=== PATIENT | female | born 1945 | race Caucasian/White ===

== ENCOUNTER → 2016-11-02 | Outpatient (CLI) | payer OTHER ==
--- NOTE | 2016-11-02 20:08 | MA ---
Screening Digital Mammogram, With iCAD Indication: Routine screening. Technique: Standard cephalocaudal and mediolateral oblique projections were obtained. This examinat ion was processed by the iCAD computer-aided detection system. Comparison: October 2015, October 2014, October 2013, and September 2011. Breast Density: Type D. Findings: CAD was reviewed. No suspicious microcalcifications, mass, or architectural distortion. Impressions 1. Negative mammogram. 2. BI-RADS: 1 - Negative. Recommendation: Routine screening is recommended in one year, as long as physical examination is ivy ign, in this patient with extremely dense breast parenchyma. [facility] will send a result letter to the patient. Negative mammography should not preclude additional workup of a clinically suspicious finding. The patient's information is entered into a reminder system with a target due date for her next mammo gram.
== END ==
LOC: CIMAGING 10:18
DX: Z12.31 Encounter for screening mammogram for malignant neoplasm of breast (principal)
CPT/HCPCS: G0202

== ENCOUNTER → 2017-01-24 | Outpatient (CLI) | payer OTHER | LOC: FIMAGING 10:26 | PROVIDERS: ATTEND Internal Medicine | DX: Z13.820 Encounter for screening for osteoporosis (principal); M85.80 Other specified disorders of bone density and structure, unspecified site; E07.9 Disorder of thyroid, unspecified; Z78.0 Asymptomatic menopausal state ==

== ENCOUNTER → 2017-11-08 | Outpatient (CLI) | payer OTHER | LOC: CIMAGING 14:47 | PROVIDERS: ATTEND Internal Medicine | DX: Z12.31 Encounter for screening mammogram for malignant neoplasm of breast (principal) ==

== ENCOUNTER 2018-02-01 09:56 | Emergency (ER) | payer OTHER ==
--- NOTE | 2018-02-01 10:38 | EDPHY ---
H & P Time Seen by Provider: 02/01/18 10:14 HPI/ROS: CHIEF COMPLAINT: Left mid back pain HISTORY OF PRESENT ILLNESS: 72-year-old female with scoliosis presents with left mid back pain. Onset of left mid back pain 5 days ago. The pain has been intermittent, [id number] and waxes and wanes. Initially, the pain seemed to be aggravated by movement, and alleviated with remaining still, but no clear association with movement now. Last night, she awoke with pain every 2-3 hours and this morning the pain worsened. Currently, there is a vague left flank discomfort, but no pain. No relief with muscle relaxants. Tried ibuprofen once without relief. No associated symptoms. No prior similar episodes. REVIEW OF SYSTEMS: Constitutional: No fever, no chills Eyes: No visual changes ENT: No sore throat Respiratory: No cough, no shortness of breath Cardiac: No chest pain Gastrointestinal: No nausea, no vomiting, no abdominal pain Genitourinary: No hematuria, no dysuria Musculoskeletal: No leg pain or swelling Skin: No rash Neurological: No headache, no weakness Psychiatric: No depression Past Medical/Surgical History: Scoliosis Social History: no recent alcohol Smoking Status: Never smoked Physical Exam: General Appearance: Alert, pleasant Eyes: Pupils equal and round, no conjunctival pallor or injection ENT, Mouth: Mucous membranes moist Neck: Normal inspection Respiratory: Normal inspection, normal respiratory rate, lungs are clear to auscultation Cardiovascular: Regular rate and rhythm Gastrointestinal: Abdomen is soft and nontender Back: Normal inspection, no tenderness Neurological: A&O, nonfocal, normal gait Skin: Warm and dry, no rash Extremities: Nontender, no pedal edema Psychiatric: Mood and affect normal Constitutional: Initial Vital Signs Temperature (C) 36.6 C 02/01/18 10:08 Heart Rate 72 02/01/18 10:08 Respiratory Rate 18 02/01/18 10:08 Blood Pressure 150/88 H 02/01/18 10:08 O2 Sat (%) 96 02/01/18 10:08 O2 Delivery Mode Room Air Allergies/Adverse Reactions: Sulfa (Sulfonamide Antibiotics) Allergy (Verified 02/01/18 10:07) Home Medications: Medication Instructions Recorded Losartan Potassium 02/01/18 Thyroid 02/01/18 Medical Decision Making - Diagnostics Imaging Results: Imaging Impressions Abdomen/Pelvis CT 02/01/18 10:30 Impression: 1. Minimal thickening of the descending colon which could be related to underdistention or less likely colitis. 2. No renal or ureteral stones or obstructive uropathy. 3. Mild superior common bile duct dilatation with minimal central biliary dilatation. 4. Limited assessment of the abdomen and pelvis due to lack of contrast and minimal intraperitoneal fat. Findings discussed with Lisette Hoffmann on 02/01/2018 at 11:00 a.m. Attention: This CT examination is specifically designed to evaluate patients who are clinically suspected of having acute obstructive uropathy. This examination does not use radiographic contrast, and as such, provides only a limited evaluation of the abdomen, pelvis and retroperitoneum. If there is further clinical suspicion for pathological conditions other than obstructive uropathy, a complete CT evaluation of the abdomen and pelvis utilizing intravenous and oral contrast should be considered. ED Course/Re-evaluation: This patient presents with intermittent left flank pain, consistent with renal colic. CT scan of the abdomen and pelvis ordered to rule out kidney stone. No abd tenderness; unlikely intraabd etiology. No rash or evidence of shingles. Received shingles vaccine 2 d ago.Location of back pain does not suggest cardiopulm etiology. 11am: CT results per Dr. Brito: NAD 11am: labs reviewed, sodium 130, slightly low, similar to prior sodium levels. Pt declines UA; recent UA negative. Abd remains soft, NT. Likely musculoskeletal etiology of pain. Ibuprofen instructions given. Warning signs discussed. Differential Diagnosis: Differential diagnosis includes though it is not limited to renal colic, AAA, pyelonephritis, pancreatitis, shingles. - Data Points Laboratory Results: Laboratory Results 02/01/18 10:35 02/01/18 10:35 02/01/18 02/01/18 02/01/18 11:15 10:35 10:35 WBC 9.13 10^3/uL 10^3/uL (3.80-9.50) RBC 4.06 10^6/uL L 10^6/uL (4.18-5.33) Hgb 12.9 g/dL g/dL (12.6-16.3) Hct 36.5 % L % (38.0-47.0) MCV 89.9 fL fL (81.5-99.8) MCH 31.8 pg pg (27.9-34.1) MCHC 35.3 g/dL g/dL (32.4-36.7) RDW 13.1 % % (11.5-15.2) Plt Count 188 10^3/uL 10^3/uL (150-400) MPV 8.3 fL L fL (8.7-11.7) Neut % (Auto) 83.1 % H % (39.3-74.2) Lymph % (Auto) 9.7 % L % (15.0-45.0) [place] % (Auto) 6.4 % % (4.5-13.0) Eos % (Auto) 0.4 % L % (0.6-7.6) Baso % (Auto) 0.1 % L % (0.3-1.7) Nucleat RBC Rel Count 0.0 % % (0.0-0.2) Absolute Neuts (auto) 7.58 10^3/uL H 10^3/uL (1.70-6.50) Absolute Lymphs (auto) 0.89 10^3/uL L 10^3/uL (1.00-3.00) Absolute Monos (auto) 0.58 10^3/uL 10^3/uL (0.30-0.80) Absolute Eos (auto) 0.04 10^3/uL 10^3/uL (0.03-0.40) Absolute Basos (auto) 0.01 10^3/uL L 10^3/uL (0.02-0.10) Absolute Nucleated RBC 0.00 10^3/uL 10^3/uL (0-0.01) Immature Gran % 0.3 % % (0.0-1.1) Immature Gran # 0.03 10^3/uL 10^3/uL (0.00-0.10) Sodium 130 mEq/L L mEq/L (135-145) Potassium 4.6 mEq/L mEq/L (3.5-5.2) Chloride 95 mEq/L L mEq/L (97-110) Carbon Dioxide 25 mEq/l mEq/l (22-31) Anion Gap 10 mEq/L mEq/L (8-16) BUN 13 mg/dL mg/dL (7-23) Creatinine 0.8 mg/dL mg/dL (0.6-1.0) Estimated GFR > 60 Glucose 103 mg/dL H mg/dL (70-100) Calcium 9.2 mg/dL mg/dL (8.5-10.4) Total Bilirubin 0.7 mg/dL mg/dL (0.1-1.4) Conjugated Bilirubin 0.2 mg/dL mg/dL (0.0-0.5) Unconjugated Bilirubin 0.5 mg/dL mg/dL (0.0-1.1) AST 19 IU/L IU/L (14-46) ALT 32 IU/L IU/L (9-52) Alkaline Phosphatase 84 IU/L IU/L (38-126) Total Protein 7.3 g/dL g/dL (6.3-8.2) Albumin 4.0 g/dL g/dL (3.5-5.0) Lipase 63 IU/L IU/L (23-300) Urine Color Pending Urine Appearance Pending Urine pH Pending Ur Specific [place] Pending Urine Protein Pending Urine Ketones Pending Urine Blood Pending Urine Nitrate Pending Urine Bilirubin Pending Urine Urobilinogen Pending Ur Leukocyte Esterase Pending Urine Glucose Pending Departure - Departure Disposition: Home, Routine, Self-Care Clinical Impression: Left flank pain Condition: Good Instructions: Flank Pain (ED) Additional Instructions: Ibuprofen 600 mg 3 times daily while the pain persists. Return for worsening symptoms or any concerns. Referrals: Rosalinda Orta MD [Primary Care Provider] - 2-3 days, call for appt. (Your blood pressure is running high today. Have it rechecked by Dr. Orta.)
[2018-02-01 10:44] LABS: PLATELET COUNT 188 10^3/uL (150-400)
[2018-02-01 11:49] VITALS: BP 120/74
== END 2018-02-01 11:48 | disposition home or self-care (01) ==
LOC: CED 09:56
DX: R10.9 Unspecified abdominal pain (principal)
CPT/HCPCS: 74176-PO; 80048-PO; 80076-PO; 81003-PO; 81015-PO; 83690-PO; 85025-PO

== ENCOUNTER → 2018-11-10 | Outpatient (CLI) | payer OTHER | LOC: CIMAGING 09:55 | PROVIDERS: ATTEND Internal Medicine | DX: Z12.31 Encounter for screening mammogram for malignant neoplasm of breast (principal) ==

== ENCOUNTER → 2019-02-13 | Outpatient (CLI) | payer OTHER | LOC: FIMAGING 11:19 | PROVIDERS: ATTEND Internal Medicine | DX: Z13.820 Encounter for screening for osteoporosis (principal); M85.89 Other specified disorders of bone density and structure, multiple sites; Z78.0 Asymptomatic menopausal state; Z79.899 Other long term (current) drug therapy ==